=== PATIENT | male | born 1985 | race Hispanic/Latino ===

== ENCOUNTER 2018-03-29 16:37 | Emergency (ER) | payer OTHER ==
[2018-03-29] MEDS ORDERED: KETOROLAC TROMETHAMINE 15MG/ML ONE (17:19)
[2018-03-29 17:24] LABS: BASOPHILS % (AUTO) 0.7 % (0.0-5.0); EOSINOPHILS % (AUTO) 2.3 % (0.0-8.0); HEMATOCRIT 45.5 % (42-54); LYMPHOCYTES % (AUTO) 39.1 % (21.0-51.0); MEAN CORPUSCULAR HEMOGLOBIN 29.2 pg (27.0-33.0); MEAN CORPUSCULAR HGB CONC 34.6 g/dL (32.0-36.0); MEAN CORPUSCULAR VOLUME 84.3 fL (79-99); MONOCYTES % (AUTO) 7.8 % (3.0-13.0); NEUTROPHILS % (AUTO) 50.1 % (40.0-77.0); NUCLEATED RED BLOOD CELLS 0.1 % (0.0-0.19); PLATELET COUNT (AUTO) 247 K/uL (130-400); RED CELL DISTRIBUTION WIDTH 12.8 % (11.0-15.5); WHITE BLOOD COUNT (AUTO) 8.7 K/uL (4.8-10.8)
[2018-03-29 17:36] LABS: INR 0.96 (0.85-1.15); PARTIAL THROMBOPLASTIN TIME 26.6 SEC (26.3-35.5); PROTHROMBIN TIME 10.1 SEC (9.6-11.6)
[2018-03-29 17:39] LABS: POTASSIUM 3.7 mmol/L (3.5-5.1)
[2018-03-29 17:43] LABS: ALBUMIN 3.9 g/dL (3.5-5.0); BILIRUBIN,TOTAL 0.2 mg/dL (0.2-1.0)
[2018-03-29 18:05] LABS: APPEARANCE,URINE Clear (CLEAR); BILIRUBIN,URINE Negative (NEGATIVE); COLOR,URINE Yellow (YELLOW); GLUCOSE, URINE (UA) Negative (NEGATIVE); KETONES,URINE Negative (NEGATIVE); LEUKOCYTE ESTERASE ,URINE Negative (NEGATIVE); NITRATE,URINE Negative (NEGATIVE); OCCULT BLOOD,URINE Negative (NEGATIVE); PH,URINE 5.5 (5.0-8.0); PROTEIN,URINE Negative (NEGATIVE)
[2018-03-29 18:13] LABS: AMPHET/METH SCREEN,URINE NEGATIVE (NEGATIVE); BARBITURATE SCREEN, URINE NEGATIVE (NEGATIVE); BENZODIAZEPINES SCREEN,URINE NEGATIVE (NEGATIVE); CANNABINOID SCREEN,URINE NEGATIVE (NEGATIVE); COCAINE SCREEN,URINE NEGATIVE (NEGATIVE); OPIATE SCREEN,URINE NEGATIVE (NEGATIVE); PHENCYCLIDINE SCREEN,URINE NEGATIVE (NEGATIVE)
== END 2018-03-29 20:05 | disposition home or self-care (01) ==
LOC: EDH 16:37
DX: R07.89 Other chest pain (principal); R00.2 Palpitations
CPT/HCPCS: 36415; 71045; 80053; 80305; 81003; 84484; 85025; 85610; 85730; 86140; 93005; 96374; 99291; J1885

== ENCOUNTER 2018-04-05 16:26 | Emergency (ER) | payer OTHER ==
[2018-04-05] MEDS ORDERED: METHYLPREDNISOLONE SOD SUCC 40MG/ML 1ML ONE (17:07)
== END 2018-04-05 17:29 | disposition home or self-care (01) ==
LOC: EDH 16:26
DX: T78.3XXA Angioneurotic edema, initial encounter (principal)
CPT/HCPCS: 96372; 99283; J2920

== ENCOUNTER 2020-01-24 18:01 | Emergency (ER) | payer OTHER | END 2020-01-24 20:07 | disposition home or self-care (01) | LOC: EDH 18:01 | DX: S06.0X9A Concussion with loss of consciousness of unspecified duration, initial encounter (principal); W18.39XA Other fall on same level, initial encounter; Y93.89 Activity, other specified; Y92.89 Other specified places as the place of occurrence of the external cause; Y99.8 Other external cause status | CPT/HCPCS: 70450 ==